=== PATIENT | female | born 1975 | race Two or more races ===

== ENCOUNTER 2022-09-27 10:27 | Day surgery (SDC) | payer OTHER ==
[2022-09-25 15:45] VITALS: BMI 28.1
[2022-09-27 12:32] VITALS: PULSE 72
[2022-09-27 12:43] VITALS: BP 106/68; RESP 20; TEMP 98
== END 2022-09-27 12:40 | disposition home or self-care (01) ==
LOC: FASU-ENDO 10:27
PROVIDERS: ATTEND Internal Medicine Gastroenterology
PROC: 0DJD8ZZ Inspection of Lower Intestinal Tract, Via Natural or Artificial Opening Endoscopic (ICD-10-PCS; principal; 2022-09-27 11:43)
DX: Z12.11 Encounter for screening for malignant neoplasm of colon (principal); K64.1 Second degree hemorrhoids; K64.8 Other hemorrhoids
CPT/HCPCS: 81025